=== PATIENT | female | born 1945 | race Caucasian/White ===

== ENCOUNTER 2023-09-06 20:04 | Observation (INO) | payer MEDICARE, SELFPAY ==
[2023-09-06] VITALS (9 sets, daily range): BP systolic 129–183; BP diastolic 57–133; PULSE 88–102; BMI 31.8; BMI 31.5
--- NOTE | 2023-09-06 15:56 | ED.GENMED ---
History of Present Illness
General
Chief Complaint: Dizziness
Source: patient
Exam Limitations: none
Time Seen by Provider: 09/06/23 15:41
Nursing documentation reviewed up to this point in time: agreed with
Travel History
Have you had any contact with someone who has COVID-19?: No
Do you have any symptoms of coronavirus? Fever > 100 degrees, chills, cough, shortness of breath, sore throat, loss of taste or smell, muscle aches, or headache?: No
History of Present Illness
History of Present Illness:
Patient states she woke today feeling dizzy. Dizziness lasted approx 5 minutes. States she tried to stand and felt that her legs would not hold her. States he fell over plastic bin next to bin. Denies hittingher head. Able to get self up. SHe
called 911 (lives alone). Now with complaint of headache, neck pain radiating down right side of body. Denies fever/chills, n/v/d. Reports episode of abdominal pain last week. No n/v/d. Denies any CP/pressure. Hx COPD, no increase in breathing
symptoms.
Past History
Past History
ED Past Medical History: COPD, GERD, HTN, Hypercholesterolemia and Other (recurrent episodes of 'TIAs')
ED Past Surgical History: None
Social History
Tobacco: Smoker
Alcohol: None
Personal: Single
Living: alone
Employment: Retired
Family History
Family History: Other (reviewed and noncontributory)
Review of Systems
Review of Systems
Allergies reviewed?: Yes
All Other Systems: ROS reviewed and negative except as documented in HPI and ROS
Constitutional: Reports no symptoms
EENT: Reports no symptoms
Respiratory: Reports no symptoms
Cardiac: Reports no symptoms
ABD/GI: Reports no symptoms
: Reports no symptoms
Musculoskeletal: Reports neck pain
Skin: Reports no symptoms
Neurological: Reports dizzy, headache and weakness
Psychiatric: Reports no symptoms
Phy Exam
General Physical Exam
General Presentation: moderate distress
General age: appears stated age
General Skin: warm and dry
General Habitus: normal
General Mental: alert
Cardiovascular Exam
Cardiovascular Exam: regular rate/rhythm and no edema
Pulmonary Exam
Pulmonary Exam: lungs clear and no respiratory distress
Gastrointestinal Exam
Gastrointestinal Exam: normal bowel sounds, non tender, soft, no organomegaly and no pulsatile mass
Neurological Exam
Neurological Exam: alert, oriented x3, CN II-XII intact, no motor deficits, no sensory deficits and speech normal
NIH Stroke Score
Level of Consciousness: 0 - Alert
LOC questions: 0-Answers both correctly
LOC Commands: 0-Performs both correctly
Best Gaze: 0-Normal
Visual Ayala: 0=Normal, no visual loss
Facial palsy: 0=Normal, symmetrical
Motor - Right Arm: 0=No drift 10 seconds
Motor - Left Arm: 0=No drift 10 seconds
Motor - Right Le-No drift 5 seconds
Motor - Left Le-No drift 5 seconds
Limb Ataxia: 0-Absent
Sensation: 0-Normal
Best Language: 0-No aphasia
Dysarthria: 0-Normal
Extinction and Inattention: 0-No abnormality
Total Score:: 0
Musculoskeletal Exam
Musculoskeletal Exam: full ROM and neuro vasc intact
Skin Exam
Skin Exam: normal color, warm/dry and no rash
Psychiatric Exam
Psychiatric Exam: normal mood/affect
Course
Orders/Labs/Results
Orders:
Orders
09/06/23 15:18
EKG [Electrocardiogram (*1)] Urgent
Reason for Study: Vertigo / Dizzy
09/06/23 15:19
EKG- Treatment ONCE
09/06/23 15:53
CT Head W/o Iv Contrast Urgent
Comment:
Reason For Exam: fall
Cervical Spine wo Contrast CT [CT Cervical Spine W/o Iv Contr] Urgent
Comment:
Reason For Exam: fall, pain
09/06/23 15:55
0.9% Sodium Chloride 500 ml [Nss] 500 ml IV BOLUS
Lorazepam [Ativan] 0.25 mg IV NOW STA
09/06/23 15:59
Orthostatic VS- Treatment ONCE
09/06/23 16:06
Complete Blood Count/With Diff Urgent
Comprehensive Metabolic Panel Urgent
Urinalysis Reflex To Culture Urgent
Date Specimen was Collected: 09/06/23
Time Specimen was Collected: 15:56
09/06/23 18:53
CR Chest - 2 Views Urgent
Comment:
Reason For Exam: SOB
09/06/23 19:02
COVID-19 Antigen Urgent
Source: Nasal Swab
09/06/23 19:53
Admit/Transfer Patient As Directed
Co-Sign Provider:
Level of Care: Observation services
Assign to:: Telemetry
Physician / Group: Yogi/Hospitalist
Diagnosis: Dizziness, ambulatory dysfunction
Reason for Telemetry: Arrhythmia
Date to Stop Telemetry: 09/09/23
Time to Stop Telemetry: 11:00
09/06/23 19:55
Code Status As Directed
Resuscitation Status: Full Code
09/06/23 19:57
Meclizine [Antivert] 25 mg PO NOW STA
09/06/23 20:47
Acetaminophen [Tylenol/Feverall] 650 mg RECTAL Q4HPRN PRN
Acetaminophen [Tylenol] 650 mg PO Q4HPRN PRN
Albuterol [ProAIR HFA INHALER] 2 puff INH R Q4 PRN
Meclizine [Antivert] 25 mg PO Q8HPRN PRN
09/06/23 20:47
Case Management Consult ONCE
Case Management Consult: Discharge Planning
Comment: stroke/tia
DIETARY CONSULT Routine
Reason for Consult: stroke/TIA
Activity As Directed
Activity Level: With Assistance
NIH Stroke Scale As Directed
Directions: Per protocol
Comment: every shift and with any change in condition or mental status
Neurological Checks As Directed
Frequency: q4h
Additional Instructions:: q4h x 24h upon admission to the floor, then qshift & with any change in condition
and mental status
Patient Education As Directed
Type: Stroke education packet
Comment: provide to patient and family
Pneumatic Compression Sleeves As Directed
Type: Knee high
Vital Signs As Directed
Frequency: Per unit guidelines
Ot Eval And Treat Routine
Pt Eval And Treat Routine
Activity Level: With Assistance
DX Deep Vein Thrombosis Video Routine
09/06/23 22:00
Budesonide/Formoterol 80/4.5 [Symbicort 80/4.5 Mcg Inhaler] 2 puff INH R BID
Loratadine [Claritin] 10 mg PO HS
Pantoprazole [Protonix] 40 mg PO HS
09/07/23 06:00
Cardiovascular Evaluation IN AM
09/07/23 08:00
Amlodipine [Norvasc] 10 mg PO DAILY
Aspirin Low Dose EC [Aspir Low (Enteric Coated)] 81 mg PO DAILY
Losartan [Cozaar] 100 mg PO DAILY
09/07/23 18:00
Enoxaparin Sodium [Lovenox] 40 mg SC QPM
09/09/23 11:00
DC Protocol for Telemetry ONCE
Abnormal Lab Results
09/06/23
16:06
Chloride 109 H mmol/L
(98-107)
Glucose 116 H mg/dl
(70-99)
09/06/23 16:06
09/06/23 16:06
Vital Signs
Initial and Last Documented VS:
Initial Vital Signs
Temp Pulse Resp BP Pulse Ox
97.7 F 106 17 177/65 93
09/06/23 15:16 09/06/23 15:16 09/06/23 15:16 09/06/23 15:16 09/06/23 15:16
Last Documented Vital Signs
Temp Pulse Resp BP Pulse Ox
98.1 F 76 16 148/65 96
09/06/23 21:11 09/06/23 22:05 09/06/23 22:05 09/06/23 21:11 09/06/23 22:08
*Radiology
Radiology exam reviewed: radiology read reviewed
*Pulse Oximetry
Patient hypoxic: no
*Critical Care Note
Total Time (30-74mins, 75-104mins- exclusive of procedures): Not Applicable
Update Note
Update Note:
Labs CT reviewed with patient. Still with dizziness with position change. She is unsteady when standing. Unable to safely transfer. Continues with complaint of weakness. Will admit to hospitalist.
ED Attending Note
-
Portions of this chart may have been created with voice recognition software.� Occasional wrong word or��sound alike� substitutions may have occurred due to the inherent limitations of voice recognition software.
Discharge Plan
Departure
Patient Disposition: Admit
Date of Disposition: 09/06/23
Time of Disposition: 17:41
Presentation/result/management discussed w/ accepting MD/DO: Hospitalist
Patient with high blood pressure during this ER visit?: No
Condition: Fair
Covid-19: Not Applicable
Discharge Problem:
Weakness, Dizziness
Interventions
Interventions:
*Risk Screen - Suicide Last Done: 09/06/23 15:25
*General Assessment Last Done: 09/06/23 15:16
*Neglect/Abuse Screening Last Done: 09/06/23 15:16
ED- Fall Risk Assessment Last Done: 09/06/23 15:25
*ED COVID-19 Vaccine History Last Done: 09/06/23 21:19
*Nursing Disposition Last Done: 09/06/23 20:51
ED- Neurological Assessment Last Done: 09/06/23 15:25
ED- Cardiac Assessment Last Done: 09/06/23 15:25
ED Swallowing Screen Last Done: 09/06/23 15:25
Discharge Date and Time
Discharge Date/Time: 09/06/23 20:51
[2023-09-06] MEDS: ATIVAN 0.25 MG IV (16:11)
[2023-09-06] MEDS: NSS 500 IV (16:12)
[2023-09-06 16:23] LABS: % Basophils 1.1 % (0-2); % Eosinophils 1.8 % (0-6); % Immature Granulocytes 0.3 % (0-0.5); % Lymphocytes 22.8 % (20.5-51.1); Absolute Basophils 0.1 10^3/uL (0-0.2); Absolute Eosinophils 0.2 10^3/uL (0-0.7); Absolute Monocytes 0.6 10^3/uL (0.1-0.6); Absolute Neutrophils 5.8 10^3/uL (1.4-6.5); Hematocrit 41.9 % (37.0-47.0); Mean Corp Hgb Conc. 35.8 g/dL (33.0-37.0); Mean Corpuscular Hgb 30.9 pg (27.0-31.0); Mean Corpuscular Volume 86.4 fL (81.0-99.0); Nucleated Red Blood Cells % 0 %; Platelet Count 305 10^3/uL (130-400); Red Blood Cell Count 4.85 10^6/uL (4.20-5.40); Red Cell Dist. Width 13.6 % (11.5-14.5); White Blood Cell Count 8.7 10^3/uL (4.8-10.8)
[2023-09-06 16:25] LABS: Urine Albumin Negative (Neg - Trace); Urine Bilirubin Negative (Negative); Urine Character Clear (Clear); Urine Color Straw; Urine Glucose Negative (Negative); Urine Ketone Negative (Negative); Urine Leukocyte Negative (Negative); Urine Nitrite Negative (Negative); Urine Occult Blood Negative (Negative); Urine Urobilinogen Negative (Neg - 1+)
[2023-09-06 16:36] LABS: ALT (SGPT) 31 U/L (0-35); AST (SGOT) 32 U/L (14-36); Albumin 4.4 g/dl (3.5-5.0); Alkaline Phosphatase 111 U/L (38-126); Blood Urea Nitrogen 14 mg/dl (7-17); Calcium 9.5 mg/dl (8.4-10.2); Carbon Dioxide 28 mmol/L (22-30); Chloride 109 mmol/L (98-107); Estimated Creatinine Clearance 72 ml/min; Glucose 116 mg/dl (70-99); Potassium 3.9 mmol/L (3.5-5.1); Sodium 139 mmol/L (135-145); Total Bilirubin 0.9 mg/dl (0.2-1.3); Total Protein 7.2 g/dl (6.3-8.2); eGFR > 60.00
--- NOTE | 2023-09-06 18:11 | HPS.HSE ---
Family Physician
-
Family Physician: Rip Chambers
Chief Complaint
-
dizziness
History of Present Illness
The patient is a 78 yo woman with PMH signficant for COPD, GERD, HTN, HLD, TIAs, presenting to the ED due to sensation that her legs will give out when trying to stand. She fell over plastic bin. No LOC, no hitting head, She lives alone and called
911. She has headache, neck pain, radiating to right side of body. She says she lives on 2nd floor and has had neck strain due to carrying her groceries up 2 flights. She's had vertigo several years ago, saw Neurology at that time, and was
responsive to PT and Meclizine. No fever, no chills, no n/v/d, Abdominal pain last week. No CP, no SOB.
Medical History
Past Medical History
Past Medical History: Reports COPD, GERD, HTN, Hypercholesterolemia and Other (recurrent TIAs, pre-diabetes)
Past Surgical History: Reports None
Social History
Tobacco: Smoker (1.5 packs per day (down from prior))
Alcohol: None
Personal: Single
Living: Alone
Family History
Family History: CAD and Other (stroke, diabetes)
Allergies / Home Medications
Allergies reflects when Allergies were last updated in [facility].
Home Medications with original date entered in [facility]
Allergy/Medication List:
Allergies
Allergy/AdvReac Type Severity Reaction Status Date / Time
garlic Allergy Nausea / Verified 03/20/21 14:20
Vomiting
onion Allergy Nausea / Verified 03/20/21 14:20
Vomiting
Penicillins AdvReac 'diarrhea' Verified 03/20/21 14:20
nausea/vomiting
Home Medications
loratadine 10 mg tablet (Claritin) 10 mg PO HS ##0 06/22/09
albuterol sulfate 90 mcg/actuation aerosol inhaler (Ventolin HFA) 2 puff inhalation R Q4 PRN sob/wheezing 12/07/17
omeprazole magnesium 20 mg tablet,delayed release (Prilosec OTC) 20 mg PO HS 12/07/17
amlodipine 10 mg tablet 10 mg PO DAILY 09/06/23
aspirin 81 mg tablet,delayed release 81 mg PO DAILY 09/06/23
fluticasone fur. 100 mcg-umeclid 62.5 mcg-vilant 25 mcg inhalat.powder (Trelegy Ellipta) 1 inh inhalation R HS 09/06/23
losartan 100 mg tablet 100 mg PO DAILY 09/06/23
Review of Systems
-
A 12 point ROS was completed and negative except as noted: Yes
Physical Exam
Vital Signs
Vital Signs
Temp Pulse Resp BP Pulse Ox
97.7 F 101 18 156/64 87
09/06/23 15:16 09/06/23 16:30 09/06/23 16:30 09/06/23 16:30 09/06/23 16:17
Physical Exam
General: Well Developed, Well Nourished, No Apparent Distress, Comfortable and Conversant
Respiratory: Clear
Cardiac: S1/S2 and Regular Rhythm
GI: Soft, Non Tender and Non Distended
Musculoskeletal: No Clubbing, No Cyanosis and No Edema
Skin: Warm and Dry
Neuro: AO x 3 and No Motor Deficits
Psych: Calm
Laboratory Results
-
09/06/23 16:06
09/06/23 16:06
Laboratory Results
Total Bilirubin 0.9 mg/dl (0.2-1.3) 09/06/23 16:06
AST 32 U/L (14-36) 09/06/23 16:06
ALT 31 U/L (0-35) 09/06/23 16:06
Alkaline Phosphatase 111 U/L (38-126) 09/06/23 16:06
Data Reviewed
-
CT Scan: Report Reviewed by me (CT head no acute pathology, CT C-spine DJD)
Medical Tests (Nuc Med, Echo, EKG etc): Image Personally Visualized and interpreted and Report Reviewed by me (EKG NSR)
Impression/Plan
-
IMPRESSION:
#Dizziness, possibly due to BPV in setting of past history of vertigo, less likely posterior circulation stroke
-Admit to tele for overnight monitoring
-Neurology consultation
-serial neuro-checks
-Meclizine prn
-consider PT for vertigo and MRI , pending clinical course
#Cervical DJD
#Tobacco smoking- 1.5 ppd
-does not want nicotine patch at this time
-Incidental findings- Partially visualized right upper lobe pulmonary nodules measuring up to 7 mm. Recommend outpatient workup with dedicated noncontrast CT chest. Will have to arrange on discharge and discuss with patient as well.
#Echo 02/26/23 Hyperdynamic LV systolic function EF 75%, mild
#COPD
#GERD
#HLD
#HTN
-continue home meds, prn labetalol IV
DVT proph-Lovenox
Full Code
[2023-09-06 19:27] LABS: COVID-19 Antigen Negative (Negative)
[2023-09-06] MEDS: ANTIVERT 25 MG PO (20:09)
[2023-09-06] MEDS: PROTONIX 40 MG PO (21:51)
[2023-09-06] MEDS: CLARITIN 10 MG PO (21:51)
[2023-09-06] MEDS: SPIRIVA RESPIMAT 2.5 MCG 2 PUFF INH (21:56)
[2023-09-06] MEDS: SYMBICORT 80/4.5 MCG INHALER 2 PUFF INH (21:56)
[2023-09-06] MEDS: MOTRIN 400 MG PO (21:58)
--- NOTE | 2023-09-06 22:01 | PTCARENOTE ---
pt arrived from ed. able to walk into room with RW. aaox3, tele placed, VS, see MAR and assessment for further details. call vergara within reach.
[2023-09-07] VITALS (10 sets, daily range): BP systolic 102–158; BP diastolic 55–68; PULSE 72–95; O2SAT 92–93
[2023-09-07] MEDS: COZAAR 100 MG PO (07:38)
[2023-09-07] MEDS: ASPIR LOW (ENTERIC COATED) 81 MG PO (07:39)
[2023-09-07] MEDS: NORVASC 10 MG PO (07:39)
[2023-09-07 07:54] LABS: HDL Cholesterol 46 mg/dl; LDL Cholesterol, Calculated 145 mg/dl; Total Cholesterol 208 mg/dl (50-199); Triglyceride 85 mg/dl (10-149); Very Low Density Lipoprotein 17 mg/dl (0-30)
[2023-09-07] MEDS: SYMBICORT 80/4.5 MCG INHALER 2 PUFF INH ×2 (08:06→21:00)
--- NOTE | 2023-09-07 08:52 | CON.NEURO4 ---
Addendum entered and electronically signed by Gary Dudley MD 09/07/23 15:17:
MRI brain negative, ruling out structural issue in posterior fossa or ischemic stroke.
Most likely a worsening of fpc vertigo issue.
Meclizine scheduled BID for 5-7 days, PT and vestibular therapy, follow BP's. Orthostatics not quite positive.
Would not start steroids.
Will follow peripherally
Original Note:
Consultation - Neurology 4
-
CONSULTING PHYSICIAN: Aliyah Dudley
REFERRING PHYSICIAN: Hospitalist
DICTATED BY: Aliyah Dudley
DATE/TIME OF REQUEST: 09/07/22
DATE/TIME OF CONSULTATION: 09/07/22
Reason for Consultation: Dizziness
History of Present Illness:
Patient is a right handed 78 year old woman with history of hypertension, tobacco use, chronic intermittent dizziness presenting to hospital because of worsening of dizziness and bilateral lower extremity weakness starting yesterday after waking
up. Patient reports she has been in her normal state of health, had a viral illness with malaise and URI symptoms and fever about 1 month ago. No recent head or neck trauma or changes in medications. Patient reports that she had sudden onset of
worsened dizziness that seems to have waxed and waned since starting yesterday morning, she got out of bed and had a fall to the ground noting bilateral lower extremity weakness but was able to recover and walk around the house. No vomiting,
diplopia, vision loss, dysarthria, notices right arm and leg pain but not weakness of paresthesia. Reports having had right temporal area headache for about 1-2 months with features of mild photophobia and nausea, improves with excedrin in the
past. Takes aspirin 81 mg daily.
Reports having had dizziness as an intermittent issue since her 30's. 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 Had some
rare intermittent tinnitus on the left ear and hearing loss on left ear. Reports that she had had worsening of the dizziness in the past and had been evaluated by 2 previous neurologists during hospitalizations for dizziness here. Meclizine has
improved things in the past. She reports she had adjustable bed installed for the dizziness.
Past Medical History: COPD, GERD, HTN, Hypercholesterolemia, prediabetes, chronic intermittent dizziness
Surgical History: None
Family History: Non-contributory
Social History: Retired, about 1-1.5 pack per day smoker, no alcohol, lives on her own
Allergies: Penicillins diarrhea/vomiting
Review of Symptoms:
Patient denies any fever, headache, chest pain, shortness of breath, GI or symptoms.
Physical Exam:
Well appearing elderly woman in no distress, no head or neck trauma, eyes clear, oropharynx clear, heart rate regular, breathing unlabored, abdomen soft non tender, no lower extremity edema
Neurologic Examination:
The patient is awake, alert and oriented x 3. She is able to follow commands and answer questions appropriately. There is no aphasia or dysarthria. On cranial nerve assessment, pupils are 3 mm bilateral, round and reactive to light and
accommodation. Visual solomon are full. No abnormal nystagmus noted. Extraocular movements are intact. Facial sensations are intact and bilaterally symmetrical, there is no facial asymmetry. Hearing is intact bilaterally to normal conversation
volume. Tongue palate and uvula are midline. Sternocleidomastoid strengths are full bilaterally. Motor strengths are 5/5 bilateral upper and lower extremities on medical research [place] scale. There is no drift or involuntary movement noted. Deep
tendon reflexes are 2+ bilateral upper and lower extremities and Babinski is absent bilaterally. Sensations of pain, touch, temperature and vibration are intact and bilaterally symmetrical. There was no extinction noted on double simultaneous
stimulation. Coordination is intact by finger to nose bilaterally. Gait is slow and careful, no wide base or ataxia.
Lab Results:
Neuro Imaging:
CT head and C spine without contrast
IMPRESSION:
1. No acute intracranial abnormality noted.
2. No acute fracture or subluxation of the cervical spine. Multilevel degenerative changes of the cervical spine.
3. Partially visualized right upper lobe pulmonary nodules measuring up to 7 mm. Recommend outpatient workup with dedicated noncontrast CT chest.
Previous brain MRA had findings suggestive of diffuse atherosclerosis without high grade stenosis in the brain
Impressions
1. Worsening of chronic dizziness since yesterday, subjective right arm leg sensory change more characterized by pain, new headaches with migrainous features for about 1 month. Has been seen my neurology a couple of times over the past few years
for similar issues. Doubtful any of these have been TIA's.
2. 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
3. Hypertension
4. Tobacco use
5. Previous MRA findings suggestive of intracranial atherosclerosis, no findings of acute or chronic stroke on any of her previous MRI studies.
Recommendations:
1. Check MRI brain without contrast. If is negative for stroke then no changes to home aspirin or BP medication regimen and would focus on symptomatic control of dizziness with meclizine, control of headaches and blood pressure, physical therapy.
2. Continue aspirin 81 mg daily
3. Check orthostatic vital signs
4. Start Meclizine 25 mg BID for 5-7 days
5. Give aspirin 325 mg and Tylenol 1000 mg once now for mild headache
6. PT/OT evaluations
7. Goal normotension
8. Would start Atorvastatin 40 mg daily given LDL level, MRA previously with findings of intracranial atherosclerosis
Discussed patient care with: Patient, hospitalist
[2023-09-07] MEDS: ASPIRIN 325 MG PO (10:51)
[2023-09-07] MEDS: TYLENOL 1000 MG PO (10:51)
--- NOTE | 2023-09-07 12:12 | W.PN.HOSP.TC ---
Today's Communication/Plan
-
PT
ASA
MRI Brain
Orthostatics
Assessment / Plan
Assessment / Plan
Physical Exam
General: Well Developed, Well Nourished, No Apparent Distress, Comfortable and Conversant
Respiratory: Clear
Cardiac: S1/S2 and Regular Rhythm
GI: Soft, Non Tender and Non Distended
Musculoskeletal: No Clubbing, No Cyanosis and No Edema
Skin: Warm and Dry
Neuro: AO x 3 and No Motor Deficits
Psych: Calm
IMPRESSION:
#Dizziness, possibly due to BPPV in setting of past history of vertigo, less likely posterior circulation stroke
-telemetry
-Neurology consultation
-serial neuro-checks
-MRI brain without contrast
-ASA 81mg daily
-Meclizine 25mg BID x 5-7 days prn
-Orthostatics
-Atorvastatin 40mg daily
-PT/OT
#Cervical DJD
#Tobacco smoking- 1.5 ppd
-does not want nicotine patch at this time
# Right upper lobe pulmonary nodules measuring up to 7 mm.
-Recommend outpatient workup with dedicated noncontrast CT chest.
-please let pulmonary know prior to dc for outpatient close f/u
#Echo 02/26/23 Hyperdynamic LV systolic function EF 75%, mild
#COPD
#GERD
#HLD
#HTN
-continue home meds, prn labetalol IV
DVT proph-Lovenox
Full Code
Anticipated Discharge: 24 - 48 hours
Subjective/Interval History
-
Date of Service: September 07, 2023
still dizzy from time to time
Objective Data
-
Vital Signs:
Vital Signs
Temp Pulse Resp BP Pulse Ox
97.8 F 75 18 123/55 97
09/07/23 11:00 02/04/24 11:00 09/07/23 11:00 09/07/23 11:00 09/07/23 11:02
I&O
09/06/23 09/07/23 09/08/23
06:59 06:59 06:59
Intake Total 480 / 480
Balance 480 / 480
Review of Systems
-
History Source: Patient
All other systems: Not reviewed unless documented
Data Reviewed
-
Diagnostic Radiology: Image personally visualized and interpreted and Report Reviewed by me
CT Scan: Image personally visualized and interpreted and Report Reviewed by me
Labs: Labs Reviewed by me
[2023-09-07] MEDS: ATIVAN 0.5 MG IV (12:36)
[2023-09-07] MEDS: NSS (PRESERVATIVE FREE) 0.25 ML IV (12:37)
--- NOTE | 2023-09-07 16:02 | STATUS ---
SITUATION:
BACKGROUND:
ASSESSMENT:
RECOMMENDATION:
--- NOTE | 2023-09-07 16:02 | CM ---
Chart reviewed. Spoke with pt at bedside
Pt lives alone in an apartment - 12 steps to enter
Has daughter nearby. Currently does own cooking, shopping, drives
Denies home DME
Denies past snf/HH
PCP - Dr Tressa Chambers
Pharm - [facility]
Will have ride at d/c
Discussed [facility] letter
PT recommending HH - no preference
Referred to [facility] for Home care needs
Plan - anticipate home with home services
[2023-09-07] MEDS: LOVENOX 40 MG SC (17:20)
[2023-09-07] MEDS: LIPITOR 40 MG PO (17:20)
[2023-09-07] MEDS: ANTIVERT 25 MG PO (20:06)
[2023-09-07] MEDS: SPIRIVA RESPIMAT 2.5 MCG 2 PUFF INH (21:00)
[2023-09-07] MEDS: CLARITIN 10 MG PO (21:45)
[2023-09-07] MEDS: PROTONIX 40 MG PO (21:46)
[2023-09-08 03:31] VITALS: BP 142/70
[2023-09-08 06:36] LABS: Hematocrit 38.4 % (37.0-47.0); Hemoglobin 13.1 g/dL (12.0-16.0); Mean Corp Hgb Conc. 34.1 g/dL (33.0-37.0); Mean Corpuscular Hgb 30.5 pg (27.0-31.0); Mean Corpuscular Volume 89.5 fL (81.0-99.0); Mean Platelet Volume 9.3 fL (7.4-10.4); Platelet Count 246 10^3/uL (130-400); Red Blood Cell Count 4.29 10^6/uL (4.20-5.40); Red Cell Dist. Width 13.2 % (11.5-14.5); White Blood Cell Count 7.9 10^3/uL (4.8-10.8)
[2023-09-08 06:54] LABS: ALT (SGPT) 27 U/L (0-35); AST (SGOT) 28 U/L (14-36); Albumin 3.4 g/dl (3.5-5.0); Alkaline Phosphatase 88 U/L (38-126); Blood Urea Nitrogen 17 mg/dl (7-17); Calcium 8.6 mg/dl (8.4-10.2); Carbon Dioxide 28 mmol/L (22-30); Chloride 108 mmol/L (98-107); Estimated Creatinine Clearance 53 ml/min; Glucose 85 mg/dl (70-99); Potassium 3.7 mmol/L (3.5-5.1); Sodium 138 mmol/L (135-145); Total Bilirubin 0.6 mg/dl (0.2-1.3); Total Protein 5.8 g/dl (6.3-8.2); eGFR > 60.00
[2023-09-08 07:00] VITALS: BP 117/54
[2023-09-08] MEDS: SYMBICORT 80/4.5 MCG INHALER 2 PUFF INH (07:41)
[2023-09-08] MEDS: ASPIR LOW (ENTERIC COATED) 81 MG PO (08:01)
[2023-09-08] MEDS: ANTIVERT 25 MG PO (08:02)
[2023-09-08] MEDS: NORVASC 10 MG PO (08:02)
[2023-09-08] MEDS: COZAAR 100 MG PO (08:02)
[2023-09-08 11:00] VITALS: BP 143/56
--- NOTE | 2023-09-08 11:37 | W.PN.HOSP.TC ---
Addendum entered and electronically signed by Christina Phillips MD 09/08/23 15:32:
Total DC time 35 minutes
Original Note:
Today's Communication/Plan
-
see A/P
Assessment / Plan
Assessment / Plan
A/P:
# Dizziness, likely due to BPPV in setting of history of vertigo, less likely posterior circulation stroke
MRI brain: No acute intracranial abnormality noted. Advanced chronic senescent changes.
Neuro on board, recc Meclizine scheduled BID for 5-7 days, PT and vestibular therapy
Orthostatic equivocal
PT OT recc HH
# Cervical DJD
# Tobacco smoking- 1.5 ppd
does not want nicotine patch at this time
# Right upper lobe pulmonary nodules measuring up to 7 mm, incidental finding on CT head
Recommend outpatient workup with dedicated noncontrast CT chest.
Pt and daughter informed of finding and recc
# Echo 02/26/23 Hyperdynamic LV systolic function EF 75%, mild
# COPD
# GERD
# HLD
# HTN
continue home meds, prn labetalol IV
DVT proph-Lovenox
Full Code
DW RN
DW daughter at bedside
Anticipated Discharge: Today
Subjective/Interval History
-
Date of Service: September 08, 2023
Objective Data
-
Labs:
Laboratory Results
09/08/23
06:12
WBC 7.9
Hgb 13.1
Hct 38.4
Plt Count 246
Sodium 138
Potassium 3.7
Chloride 108 H
Carbon Dioxide 28
BUN 17
Creatinine 0.8
Glucose 85
Calcium 8.6
Total Bilirubin 0.6
AST 28
ALT 27
Alkaline Phosphatase 88
Vital Signs:
Vital Signs
Temp Pulse Resp BP Pulse Ox
36.6 C 78 16 143/56 96
09/08/23 11:00 09/08/23 11:00 09/08/23 11:00 09/08/23 11:00 09/08/23 11:00
I&O
09/07/23 09/08/23 09/09/23
06:59 06:59 06:59
Intake Total 480 / 480 1020 / 1020
Balance 480 / 480 1020 / 1020
Review of Systems
-
History Source: Patient
All other systems: Not reviewed unless documented
Physical Exam
-
General: Well Developed, Well Nourished, No Apparent Distress, Comfortable and Conversant
HEENT: Normocephalic, Atraumatic, Nose Appears Normal and Ears Appear Normal
Respiratory: Clear to Auscultation and Non Labored Respirations; Negative Accessory Resp Muscle Use
Cardiac: Regular Rhythm and S1/S2
GI: Soft, Nontender, Nondistended and Normal Bowel Sounds
Skin: Warm and Dry
Neuro: Awake, Alert, Oriented, AO x 3 and Nonfocal/Grossly Intact
Psych: Calm and Intact Judgement/Insight
Data Reviewed
-
Labs: Labs Reviewed by me
--- NOTE | 2023-09-08 13:19 | CM ---
Spoke with RN who stated that per attending patient stable for discharge. Placed a call to [facility] and spoke with Junie Rivera who confirmed acceptance for patient.
Per previous CM on case, patient has a ride home however will remain available if that has changed.
Plan: Case management will continue to follow and assist with discharge planning. Patient to return home with VN through [facility].
--- NOTE | 2023-09-08 15:26 | W.DCSUMMARY ---
Discharge Summary
Discharge Data
Date of Admission: 09/06/23
Date of Discharge: 09/08/23
-
Pending Results: No
Hospital Course
Principal Diagnosis:
Dizziness/vertigo likely Benign paroxysmal positional vertigo (BPPV)
Incidental finding of Right upper lobe pulmonary nodules measuring up to 7 mm
Chronic Diagnoses:�
Cervical degenerative joint disease
Tobacco smoking- 1.5 pack per day
Chronic obstructive pulmonary disease
Gastroesophageal reflux disease
Hyperlipidemia
Hypertension
Consultations:�
Neurology
Procedures:�
None
Clinical course:�
This is a 78-year-old female, with past medical history as stated above, who presented with dizziness.
Problem 1:
Dizziness, likely due to BPPV.
Her MRI brain was negative hence less likely due to posterior circulation stroke.
She can continue with Meclizine 25 mg twice daily for 5-7 days, and follow-up with physical therapy outpatient for vestibular therapy.
She has also been informed to try Hailey maneuver outpatient for her BPPV.
As for the rest of her medical problems, they were stable during her hospital stay.
Discharge Plan
-
Patient Disposition: Home with Home Care
Discharge Diagnosis/Procedures: Dizziness likely vertigo/ due to Benign paroxysmal positional vertigo; Right upper lobe pulmonary nodules measuring up to 7 mm (incidental finding on CT head); high cholesterol (LDL at 145)
Condition: Fair
Diet: As tolerated
Activity: As tolerated
Driving Restrictions: Not until seen by your Dr
Others Tests: outpatient non-contrast CT chest to evaluate lung nodule
Activity Restrictions/Additional Instructions:
Continue Meclizine 25 mg twice daily for 5-7 days.
Follow up with PT outpatient for vestibular therapy.
You can try Hailey maneuver for BPPV.
Follow up with your PCP or welfare adviser for the incidental right lung nodule noted on CT head.
You were started with Lipitor 40 mg for high cholesterol (LDL level at 145)
Referrals:
Rip Chambers, DO [Family Provider] - in less than 1 week
Prescriptions:
New
meclizine 25 mg Tablet
25 mg PO BID 7 Days Qty: 14 0RF
atorvastatin 40 mg Tablet
40 mg PO QPM Qty: 30 0RF
Continued
loratadine [Claritin] 10 mg Tablet
10 mg PO HS Qty: 0
albuterol sulfate [Ventolin HFA] 90 MCG/PUFF HFA aerosol inhaler
2 puff inhalation R Q4 PRN (Reason: sob/wheezing)
omeprazole magnesium [Prilosec OTC] 20 MG tablet,delayed release (DR/EC)
20 mg PO HS
aspirin 81 mg Tablet,Delayed Release (Dr/Ec)
81 mg PO DAILY
amlodipine 10 mg tablet
10 mg PO DAILY
losartan 100 mg tablet
100 mg PO DAILY
Trelegy Ellipta 100-62.5-25 mcg blister with device
1 inh INHALATION R HS
ibuprofen 400 mg Tablet
400 mg PO Q6H PRN (Reason: CHENG/pain)
Discharge Orders:
Discharge Patient (As Directed); Ordered 09/08/23
Ordered By: Christina Phillips
Discharge Date and Time
Discharge Date/Time: 09/08/23 13:19
--- NOTE | 2023-09-22 09:00 | OID.L.PAT ---
Pulmonary Nodule Pat Letter
- -
09/22/23
SHAWN LY
[address]
[place], [place]
Deafiona ESCOBAR,
A pulmonary nodule was seen on an imaging study done by [facility]. This was reviewed by the [facility] Pulmonary Nodule Advisory Board and the following recommendation was made:
Recommendation: Follow up with a Insulation Worker Furnace Installer
If you have any questions, please do not hesitate to contact your primary care physician. If you are in need of a Physician, you can go to [email or web address] and click on 'Find a Provider'. Type 'Family Medicine' in the search.
Oncology Nurse Navigator
[facility]
[phone]
--- NOTE | 2023-09-22 09:01 | OID.L.REC ---
Pulmonary Nodule Follow Up
- Recommendation
09/22/23
Pulmonary Nodule Review Recommendations
Your patient, SHAWN LY, had a pulmonary nodule seen on a CT Head done on 09/06/23 in the [facility] Emergency Room.
This was reviewed by the [facility] Pulmonary Nodule Advisory Board and the following recommendation was made:
Recommendation: Follow up with a Home And Family Living Professor
If you have any questions please do not hesitate to contact us.
Sincerely,
Oncology Nurse Navigator
[facility]
[phone]
== END 2023-09-08 13:19 | disposition home health service (06) ==
LOC: 3 WEST ACU 20:04
PROVIDERS: Internal Medicine; Nurse Practitioner; ADMITTING PHYSICIAN Internal Medicine; ATTENDING PHYSICIAN Internal Medicine; CONSULT PHYSICIAN Student in an Organized Health Care Education/Training Program; EMERGENCY PHYSICIAN Emergency Medicine; FAMILY PHYSICIAN Family Medicine
DX: R42 Dizziness and giddiness (principal); R51.9 Headache, unspecified; R91.8 Other nonspecific abnormal finding of lung field; M54.2 Cervicalgia; W18.39XA Other fall on same level, initial encounter; Y93.89 Activity, other specified; R53.1 Weakness; Y92.009 Unspecified place in unspecified non-institutional (private) residence as the place of occurrence of the external cause; J44.9 Chronic obstructive pulmonary disease, unspecified; R73.03 Prediabetes; K21.9 Gastro-esophageal reflux disease without esophagitis; I10 Essential (primary) hypertension; E78.00 Pure hypercholesterolemia, unspecified; M47.812 Spondylosis without myelopathy or radiculopathy, cervical region; F17.210 Nicotine dependence, cigarettes, uncomplicated; Z86.73 Personal history of transient ischemic attack (TIA), and cerebral infarction without residual deficits; Z11.52 Encounter for screening for COVID-19; Z60.2 Problems related to living alone; Z83.3 Family history of diabetes mellitus; Z82.49 Family history of ischemic heart disease and other diseases of the circulatory system; Z82.3 Family history of stroke; Z88.0 Allergy status to penicillin; Z91.018 Allergy to other foods; Z79.82 Long term (current) use of aspirin
CPT/HCPCS: 70450; 70551; 71046; 72125; 80053; 80061; 81003; 85025; 85027; 87811; 93005; 94640; 96361; 96374; 97162; 97165; 99285; G0378

== ENCOUNTER → 2023-09-15 15:34 | Outpatient (REF) | payer MEDICARE, SELFPAY | LOC: HWRAD 15:34 | PROVIDERS: ATTENDING PHYSICIAN Family Medicine | DX: R91.8 Other nonspecific abnormal finding of lung field (principal); Z09 Encounter for follow-up examination after completed treatment for conditions other than malignant neoplasm; R42 Dizziness and giddiness | CPT/HCPCS: 71250 ==

== ENCOUNTER → 2024-02-26 14:57 | Outpatient (REF) | payer MEDICARE, SELFPAY | LOC: RCS 14:57 | PROVIDERS: ATTENDING PHYSICIAN Nurse Practitioner; FAMILY PHYSICIAN Family Medicine | DX: I10 Essential (primary) hypertension (principal); E78.00 Pure hypercholesterolemia, unspecified; I35.0 Nonrheumatic aortic (valve) stenosis | CPT/HCPCS: 93306 ==

== ENCOUNTER 2024-11-15 15:02 | Inpatient (IN) | payer MEDICARE, SELFPAY ==
[2024-11-15] VITALS (10 sets, daily range): BP systolic 97–146; BP diastolic 47–120; BMI 33.2; BMI 31.8
--- NOTE | 2024-11-15 10:31 | ED.GENMED ---
History of Present Illness
General
Chief Complaint: Breathing Problem
Source: patient and ambulance crew (Report patient was hypoxic, with a fever and cough since last Friday.)
Exam Limitations: none
Time Seen by Provider: 11/15/24 10:17
Nursing documentation reviewed up to this point in time: agreed with
History of Present Illness
History of Present Illness:
79-year-old female presents emergency room complaining of feeling weak, coughing, shortness of breath and fever.
Past History
Past History
ED Past Medical History: COPD, GERD, HTN, Hypercholesterolemia and Other (recurrent episodes of 'TIAs')
ED Past Surgical History: None
Social History
Tobacco: Smoker
Alcohol: None
Drug: None
Personal: Single
Living: alone
Employment: Retired
Family History
Family History: Other (reviewed and noncontributory)
Review of Systems
Review of Systems
Allergies reviewed?: Yes
All Other Systems: Not applicable
Constitutional: Reports fever
EENT: Reports no symptoms
Respiratory: Reports cough and trouble breathing
Cardiac: Reports no symptoms
ABD/GI: Reports no symptoms
: Reports no symptoms
Musculoskeletal: Reports no symptoms
Skin: Reports no symptoms
Neurological: Reports weakness
Endocrine: Reports no symptoms
Hematologic/Lymphatic: Reports no symptoms
Psychiatric: Reports no symptoms
Phy Exam
Physical Exam
Physical Exam:
Physical Exam
General: Fever 101.9
Neck: supple. no meningeal signs. normal posterior pharynx
Heart: s1/s2 tachycardia, no murmur. equal radial
pulses.
HEENT: Pupils equal round reactive to light, EOMI
Lungs: Moderate respiratory distress. Wheezing bilaterally
Abdomen: normal bowel sounds. not tender. no CVAT
Neuro: alert and oriented. no focal neurological deficits cranial nerves II through XII intact
Skin: no rash
Psychiatric: well kept. interactive and cooperative
Extremities: no edema. no calf tenderness. negative homans. good distal pulses
Scores
Heart Failure Risk
Heart Failure Risk Score: Not Applicable
Sepsis
Sepsis Screening
Sepsis Assessment: Sepsis Ruled Out
Sepsis Screen
Sepsis Screen: Sepsis Ruled Out
Date: 11/15/24
Time: 14:41
Course
Orders/Labs/Results
Orders:
Orders
11/15/24 10:29
Cardiac Monitoring- Treatment ONCE
IV Insert/Care/Rem.- Treatment PRN
CR Chest - 2 Views Urgent
Comment:
Reason For Exam: short of breath, fever
Pulse Ox/cont/shift [RESP] Stat
Quantity: 1
11/15/24 10:47
COVID-19 Antigen Urgent
Source: Nasal Swab
Complete Blood Count/With Diff Urgent
Comprehensive Metabolic Panel Urgent
Lactic Acid Q4H
Comment: CANCEL 2nd LACTIC ACID IF 1st LACTIC ACID IS LESS THAN 2
Blood Culture Q30M
FELIPE Source: Blood/Venous
Specimen Description:
Blood Culture Q30M
FELIPE Source: Blood/Venous
Specimen Description:
Influenza A+B Rapid Molecular Urgent
FELIPE Source: Nasal Swab
Specimen Description:
11/15/24 12:15
Ipratropium/Albuterol Sulfate [Duoneb] 3 ml INH R NOW STA
11/15/24 12:44
Acetaminophen [Tylenol] 650 mg PO NOW STA
11/15/24 13:15
Azithromycin 500 mg/250 ml [Zithromax Infusion] 500 mg in 250 ml IV NOW
CefTRIAXone [Rocephin] 2,000 mg IV NOW STA
11/15/24 13:22
Sterile Water [Sterile Water For Injection] 20 ml .ROUTE .STK-MED
11/15/24 13:42
Admit/Transfer Patient As Directed
Co-Sign Provider:
Level of Care: Inpatient admission
Assign to:: Medical/Surgical
Physician / Group: [email or web address]
Diagnosis: Sepsis ( T 101.9, HR > 90 ) due to PNA Suspect COPD flare
Reason for Hospitalization: Sepsis ( T 101.9, HR > 90 ) due to PNA
Suspect COPD flare with acute bronchospasm
Expected length of stay greater than two midnights?: Yes
ELOS- Estimated Length of Stay in days: 3
I certify the patient meets the requirements for IP care: Yes
11/15/24 13:44
Code Status As Directed
Resuscitation Status: Full Code
Procalcitonin Routine
PCT Algorithmm Indication: Respiratory
Abnormal Lab Results
11/15/24
10:47
Absolute Monos (auto) 0.7 H 10^3/uL
(0.1-0.6)
Lymphocytes % 18.7 L %
(20.5-51.1)
Glucose 133 H mg/dl
(70-99)
11/15/24 10:47
11/15/24 10:47
Vital Signs
Initial and Last Documented VS:
Initial Vital Signs
Temp Pulse Resp BP Pulse Ox
101.9 F H 103 16 135/65 86
11/15/24 10:09 11/15/24 10:09 11/15/24 10:09 11/15/24 10:09 11/15/24 10:09
Last Documented Vital Signs
Temp Pulse Resp BP Pulse Ox
101.9 F H 97 21 136/54 93
11/15/24 10:09 11/15/24 11:15 11/15/24 11:15 11/15/24 11:00 11/15/24 11:15
MDM/Problems Addressed
Differential Diagnosis Includes:
Pneumonia, COPD exacerbation
MDM/Problems Addressed:
79-year-old female with pneumonia. COPD. Admit to hospitalist. Hypoxia.
Chronic conditions affecting care: COPD
Acute Exacerbation and/or Progression of Chronic Illness: COPD
*Radiology
Radiology exam reviewed: preliminary read by ED provider (Chest x-ray shows left-sided pneumonia)
*Pulse Oximetry
Patient hypoxic: yes
*Critical Care Note
Total Time (30-74mins, 75-104mins- exclusive of procedures): Not Applicable
Data Reviewed
Further Testing Considered But Not Given:
CT chest not indicated
Patient Management
Social determinants of health affecting care: Living situation and Strong social support
Discussion with other providers: Hospitalist
Escalation/DeEscalation of care consider admission/obs:
Admit indicated
ED Attending Note
-
Portions of this chart may have been created with voice recognition software.� Occasional wrong word or��sound alike� substitutions may have occurred due to the inherent limitations of voice recognition software.
Discharge Plan
Departure
Patient Disposition: Admit
Date of Disposition: 11/15/24
Time of Disposition: 13:12
Admit to: Telemetry
Presentation/result/management discussed w/ accepting MD/DO: Hospitalist
Patient with high blood pressure during this ER visit?: Yes
Condition: Fair
Discharge Problem:
Pneumonia involving left lung, Acute exacerbation of chronic obstructive pulmonary disease
Prescriptions:
No Action
albuterol sulfate [Ventolin HFA] 90 MCG/PUFF HFA aerosol inhaler
2 puff inhalation R Q4HPRN PRN (Reason: sob/wheezing)
omeprazole magnesium [Prilosec OTC] 20 MG tablet,delayed release (DR/EC)
20 mg PO HS
aspirin 81 mg Tablet,Delayed Release (Dr/Ec)
81 mg PO DAILY
amlodipine 10 mg tablet
10 mg PO DAILY
losartan 100 mg tablet
100 mg PO DAILY
Trelegy Ellipta 100-62.5-25 mcg blister with device
1 inh INHALATION R HS
ibuprofen 400 mg Tablet
400 mg PO Q6HPRN PRN (Reason: BACK PAINS)
Referrals:
Rip Chambers, DO [Family Provider] -
Interventions
Interventions:
*Risk Screen - Suicide Last Done: 11/15/24 10:09
*General Assessment Last Done: 11/15/24 11:23
*Neglect/Abuse Screening Last Done: 11/15/24 10:09
*ED- Fall Risk Assessment Last Done: 11/15/24 11:23
*ED COVID-19 Vaccine History Last Done: 11/15/24 11:23
ED- Cardiac Assessment Last Done: 11/15/24 11:23
ED- Pulmonary Assessment Last Done: 11/15/24 11:23
Discharge Date and Time
Print Language: TRISTANIAN
[2024-11-15 11:13] LABS: % Basophils 0.7 % (0-2); % Eosinophils 0.1 % (0-6); % Immature Granulocytes 0.4 % (0-0.5); % Lymphocytes 18.7 % (20.5-51.1); % Monocytes 8.9 % (1.7-9.3); % Neutrophils 71.2 % (42.2-75.2); Absolute Basophils 0.1 10^3/uL (0-0.2); Absolute Lymphocytes 1.4 10^3/uL (1.2-3.4); Absolute Monocytes 0.7 10^3/uL (0.1-0.6); Absolute Neutrophils 5.3 10^3/uL (1.4-6.5); Hematocrit 39.8 % (37.0-47.0); Hemoglobin 13.8 g/dL (12.0-16.0); Mean Corp Hgb Conc. 34.7 g/dL (33.0-37.0); Mean Corpuscular Hgb 30.7 pg (27.0-31.0); Mean Corpuscular Volume 88.6 fL (81.0-99.0); Mean Platelet Volume 8.9 fL (7.4-10.4); Nucleated Red Blood Cells % 0 %; Platelet Count 215 10^3/uL (130-400); Red Blood Cell Count 4.49 10^6/uL (4.20-5.40); Red Cell Dist. Width 13.5 % (11.5-14.5); White Blood Cell Count 7.4 10^3/uL (4.8-10.8)
[2024-11-15 11:21] LABS: ALT (SGPT) 31 U/L (0-35); AST (SGOT) 31 U/L (14-36); Albumin 4.3 g/dl (3.5-5.0); Alkaline Phosphatase 107 U/L (38-126); Blood Urea Nitrogen 15 mg/dl (7-17); Calcium 8.8 mg/dl (8.4-10.2); Carbon Dioxide 25 mmol/L (22-30); Chloride 106 mmol/L (98-107); Glucose 133 mg/dl (70-99); Potassium 3.8 mmol/L (3.5-5.1); Sodium 140 mmol/L (135-145); Total Bilirubin 0.7 mg/dl (0.2-1.3); Total Protein 7.1 g/dl (6.3-8.2); eGFR > 60.00
[2024-11-15 11:28] LABS: COVID-19 Antigen Negative (Negative)
[2024-11-15] MEDS: DUONEB 3 ML INH ×2 (13:27→19:36)
[2024-11-15] MEDS: ROCEPHIN 2000 MG IV (13:28)
[2024-11-15] MEDS: TYLENOL 650 MG PO (13:28)
--- NOTE | 2024-11-15 13:36 | HPS.HSE ---
Family Physician
-
Family Physician: Rip Chambers
Chief Complaint
-
coughing, shortness of breath
History of Present Illness
HPI
79F HX COPD, GERD, HTN, Hypercholesterolemia, multiple suspected TIAs episodes pw
feeling weak, coughing, shortness of breath and fever.
Medical History
Past Medical History
Past Medical History: Reports COPD, GERD, HTN, Hypercholesterolemia and Other (recurrent TIAs, pre-diabetes)
Past Surgical History: Reports None
Social History
Tobacco: Smoker (1.5 packs per day (down from prior))
Alcohol: None
Personal: Single
Living: Alone
Family History
Family History: CAD and Other (stroke, diabetes)
Allergies / Home Medications
Allergies reflects when Allergies were last updated in [employer].
Home Medications with original date entered in [employer]
Allergy/Medication List:
Allergies
Allergy/AdvReac Type Severity Reaction Status Date / Time
garlic Allergy Nausea / Verified 03/20/21 14:20
Vomiting
onion Allergy Nausea / Verified 03/20/21 14:20
Vomiting
Penicillins AdvReac 'diarrhea' Verified 03/20/21 14:20
nausea/vomiting
Home Medications
loratadine 10 mg tablet (Claritin) 10 mg PO HS ##0 06/22/09
albuterol sulfate 90 mcg/actuation aerosol inhaler (Ventolin HFA) 2 puff inhalation R Q4 PRN sob/wheezing 12/07/17
omeprazole magnesium 20 mg tablet,delayed release (Prilosec OTC) 20 mg PO HS 12/07/17
amlodipine 10 mg tablet 10 mg PO DAILY 09/06/23
aspirin 81 mg tablet,delayed release 81 mg PO DAILY 09/06/23
fluticasone fur. 100 mcg-umeclid 62.5 mcg-vilant 25 mcg inhalat.powder (Trelegy Ellipta) 1 inh inhalation R HS 09/06/23
losartan 100 mg tablet 100 mg PO DAILY 09/06/23
Review of Systems
-
Constitutional: Reports Fever and Fatigue
EENT: Reports No Symptoms
Respiratory: Reports Cough and Trouble Breathing
Cardiac: Reports No Symptoms
Abdomen/GI: Reports No Symptoms
: Reports No Symptoms
Musculoskeletal: Reports No Symptoms
Skin: Reports No Symptoms
Neurological: Reports No Symptoms
Endocrine: Reports No Symptoms
Hematologic/Lymphatic: Reports No Symptoms
Psych: Reports No Symptoms
Physical Exam
Vital Signs
Vital Signs
Temp Pulse Resp BP Pulse Ox
101.9 F H 97 21 136/54 93
11/15/24 10:09 11/15/24 11:15 11/15/24 11:15 11/15/24 11:00 11/15/24 11:15
Physical Exam
General: Comfortable, Conversant, Respiratory Distress (moderate ) and Other (smell of tobaco)
HEENT: Anicteric
Respiratory: Wheezes; No Rales, Rhonchi or Crackles
Cardiac: S1/S2 and Regular Rhythm
Breast: Deferred by me
GI: Soft, Non Tender, Non Distended and Normal Bowel Sounds
Rectal: Deferred by Provider
Genito-urinary: Deferred by me
Musculoskeletal: No Edema
Neuro: AO x 3
Psych: Calm
Laboratory Results
-
11/15/24 10:47
11/15/24 10:47
Laboratory Results
Lactic Acid Cancelled 11/15/24 14:30
Total Bilirubin 0.7 mg/dl (0.2-1.3) 11/15/24 10:47
AST 31 U/L (14-36) 11/15/24 10:47
ALT 31 U/L (0-35) 11/15/24 10:47
Alkaline Phosphatase 107 U/L (38-126) 11/15/24 10:47
Data Reviewed
-
Diagnostic Radiology: Image Personally Visualized and interpreted
Medical Tests (Nuc Med, Echo, EKG etc): Report Reviewed by me
Lab Data: Labs Reviewed by me
Old Records: Reviewed
Impression/Plan
-
Vital Signs
Temp Pulse Resp BP Pulse Ox
101.9 F H 97 21 136/54 93
11/15/24 10:09 11/15/24 11:15 11/15/24 11:15 11/15/24 11:00 11/15/24 11:15
11/15/24
10:47
WBC 7.4
Creatinine 0.8
eGFR > 60.00
Lactic Acid 1.0
SARS-CoV-2 Antigen Negative
NEG Covid
NEG Flu A & B
BCx time two sent
My read on CXR: ? LLL PNA . Pending final report
02/26/23 TTE:
Hyperdynamic LV systolic function
EF 75%,
mild
Last hospitalist admission:
Date of Admission: 09/06/23 - Date of Discharge: 09/08/23
Principal Diagnosis:
Dizziness/vertigo likely Benign paroxysmal positional vertigo (BPPV)
Incidental finding of Right upper lobe pulmonary nodules measuring up to 7 mm
ASSESSMENT & PLAN
Sepsis ( T 101.9, HR > 90 ) due to PNA
Suspect PNA at [facility] with associated fever 101.9 but no WCC
Suspect element of COPD flare with acute bronchospasm
Associated acute Hypoxic RI with POx low 90s on RA
HX COPD
Curent smoker
nl LA
- NEG Flu A& B
- NEG Covid
- check PCT
- f/u BCx sent from ER
- IV NS
- agree with IV CFTX and Azithromycin
- supportive O2 Rx to keep POx > 93
- IV Decadron
- DuoNebs qid and PRN
- Tylenol PRN
- advise cessation of smoking
HX Right upper lobe pulmonary nodules measuring up to 7 mm, incidental finding on CT head from last admission
- Recommend outpatient workup with dedicated noncontrast CT chest.
- Record of Pt and daughter informed of finding on last admission
HLD
- No statin on current Rx list
Benign HTN
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
Nicotine use disorder
Current smoker
- advise cessation of smoking
- Nicotine HYDROCRANE OPERATOR
DVT Px: LMWH
Full code
IP
[2024-11-15] MEDS: ZITHROMAX INFUSION 250 IV (13:48)
[2024-11-15 14:27] LABS: Procalcitonin < 0.05 ng/ml (0.0-0.25)
[2024-11-15] MEDS: SYMBICORT 80/4.5 MCG INHALER 2 PUFF INH (19:37)
[2024-11-15] MEDS: DECADRON 4 MG IV (20:03)
[2024-11-15] MEDS: LOVENOX 40 MG SC (20:03)
[2024-11-15] MEDS: NSS 1000 IV (20:05)
[2024-11-15] MEDS: PROTONIX 40 MG PO (21:55)
[2024-11-16 07:20] VITALS: BP 128/53
[2024-11-16] MEDS: SPIRIVA RESPIMAT 2.5 MCG 2 PUFF INH (07:27)
[2024-11-16] MEDS: DUONEB 3 ML INH ×4 (07:27→19:25)
[2024-11-16] MEDS: SYMBICORT 80/4.5 MCG INHALER 2 PUFF INH ×2 (07:45→19:25)
[2024-11-16 08:06] LABS: Hematocrit 35.9 % (37.0-47.0); Hemoglobin 12.4 g/dL (12.0-16.0); Mean Corp Hgb Conc. 34.5 g/dL (33.0-37.0); Mean Corpuscular Hgb 30.8 pg (27.0-31.0); Mean Corpuscular Volume 89.1 fL (81.0-99.0); Mean Platelet Volume 9.5 fL (7.4-10.4); Platelet Count 193 10^3/uL (130-400); Red Blood Cell Count 4.03 10^6/uL (4.20-5.40); Red Cell Dist. Width 13.2 % (11.5-14.5); White Blood Cell Count 4.9 10^3/uL (4.8-10.8)
[2024-11-16] MEDS: COZAAR 100 MG PO (09:22)
[2024-11-16] MEDS: DECADRON 4 MG IV ×2 (09:22→22:00)
[2024-11-16] MEDS: ASPIR LOW (ENTERIC COATED) 81 MG PO (09:22)
[2024-11-16] MEDS: ZITHROMAX 500 MG PO (09:22)
--- NOTE | 2024-11-16 11:02 | W.PN.HOSP.TC ---
Today's Communication/Plan
-
Continue antibiotics and steroids
Wean oxygen as tolerated
Assessment / Plan
Assessment / Plan
79-year-old with shortness of breath and cough
Chest x-ray reviewed by me-bibasilar opacities left greater than right
Echo 02/26/2024-hyperdynamic LV EF 75% mild to moderate
CVS: S1-S2 normal, systolic murmur at apex
Chest: Bilateral showed wheezes
Abdomen: Soft, NT / Bowel sounds present
Extremities: No edema
CUSTOMER PRICING MANAGER: Non focal exam
# Sepsis due to left lower lobe pneumonia
COPD exacerbation and acute bronchitis
Acute hypoxic respiratory insufficiency secondary to above
Influenza and COVID-negative
Blood culture sent from ER
Continue ceftriaxone and Zithromax
On Trelegy Ellipta as outpatient
Nebulizer treatments
Decadron
Smoking cessation counseling done however patient states that every time she quits or tries to quit she ends up smoking even more
# Right upper lobe pulmonary nodule-needs outpatient follow-up
# Hypertension-continue amlodipine, losartan
# GERD-continue PPI
# Mild to moderate aortic stenosis
# Sleep apnea- ? CPAP
# Obesity with a BMI of 31
# Diverticulosis/hemorrhoids
# Fatty liver
# Cervical degenerative disc disease
# Active smoker-cessation counseling-continue nicotine patch
# DVT prophylaxis-Lovenox
# Full code
D/W Rn
Anticipated Discharge: 24 - 48 hours
Subjective/Interval History
-
Date of Service: November 16, 2024
Objective Data
-
Labs:
Laboratory Results
11/16/24
07:28
WBC 4.9
Hgb 12.4
Hct 35.9 L
Plt Count 193
Vital Signs:
Vital Signs
Temp Pulse Resp BP Pulse Ox
98.0 F 78 16 128/53 93
11/16/24 07:20 11/16/24 07:47 11/16/24 07:47 11/16/24 07:20 11/16/24 08:10
I&O
11/15/24 11/16/24 11/17/24
06:59 06:59 06:59
Intake Total 240 / 240
Balance 240 / 240
[2024-11-16] MEDS: NSS IV (12:04)
[2024-11-16] MEDS: ROCEPHIN 1000 MG IV (13:16)
[2024-11-16] MEDS: STERILE WATER FOR INJECTION 10 ML IV (13:16)
[2024-11-16 15:25] VITALS: BP 147/65
--- NOTE | 2024-11-16 15:41 | CM ---
Met with patient to obtain information for assessment. Patient stated that she lives in a one floor condo with a flight of steps to enter. She denied any difficulty with steps. Patient described herself as independent with her ADLs, personal care,
dressing and bathing. 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 Her daughter lives close as well as her adult grandson and are supportive if she has any needs. Patient has no DME.
She has not had VN services She has not been to a SNF.
She has a prescription plan and uses, [facility] [address]
Her PCP is, Rip Chambers.
Patient stated that she feels she will be able to return home when stable. She is hoping to wean off of her o2.
Plan: Case management will continue to follow and assist with discharge planning. Will watch for o2 needs.
[2024-11-16] MEDS: LOVENOX 40 MG SC (17:51)
[2024-11-16] MEDS: PROTONIX 40 MG PO (22:00)
[2024-11-16] MEDS: TYLENOL 325 MG PO (22:40)
[2024-11-16] MEDS: ROBITUSSIN 100 MG PO (22:41)
[2024-11-16 23:38] VITALS: BP 141/62
[2024-11-17 07:29] LABS: Blood Urea Nitrogen 18 mg/dl (7-17); Calcium 9.1 mg/dl (8.4-10.2); Carbon Dioxide 22 mmol/L (22-30); Chloride 112 mmol/L (98-107); Estimated Creatinine Clearance 70 ml/min; Glucose 133 mg/dl (70-99); Magnesium 2.2 mg/dl (1.6-2.3); Potassium 4.7 mmol/L (3.5-5.1); Sodium 139 mmol/L (135-145); eGFR > 60.00
[2024-11-17] MEDS: DUONEB 3 ML INH ×4 (07:42→19:17)
[2024-11-17] MEDS: SPIRIVA RESPIMAT 2.5 MCG 2 PUFF INH (07:43)
[2024-11-17] MEDS: SYMBICORT 80/4.5 MCG INHALER 2 PUFF INH ×2 (07:43→19:17)
[2024-11-17 08:22] VITALS: BP 125/58
[2024-11-17] MEDS: DECADRON 4 MG IV (08:30)
[2024-11-17] MEDS: ZITHROMAX 500 MG PO (08:30)
[2024-11-17] MEDS: ASPIR LOW (ENTERIC COATED) 81 MG PO (08:30)
[2024-11-17] MEDS: COZAAR 100 MG PO (08:30)
[2024-11-17 10:53] VITALS: BP 150/65; PULSE 86; O2SAT 93
[2024-11-17] MEDS: STERILE WATER FOR INJECTION 10 ML IV (13:17)
[2024-11-17] MEDS: ROCEPHIN 1000 MG IV (13:18)
--- NOTE | 2024-11-17 13:54 | W.PN.HOSP.TC ---
Today's Communication/Plan
-
Taper steroids
Continue antibiotics
Assessment / Plan
Assessment / Plan
79-year-old with shortness of breath and cough
Chest x-ray reviewed by me-bibasilar opacities left greater than right
Echo 02/26/2024-hyperdynamic LV EF 75% mild to moderate
CVS: S1-S2 normal, systolic murmur at apex
Chest: Bilateral showed wheezes
Abdomen: Soft, NT / Bowel sounds present
Extremities: No edema
MEDICAL SUPERINTENDENT: Non focal exam
# Sepsis due to left lower lobe pneumonia
COPD exacerbation and acute bronchitis
Acute hypoxic respiratory insufficiency secondary to above
Influenza and COVID-negative
Blood culture sent from ER
Continue ceftriaxone and Zithromax
On Trelegy Ellipta as outpatient
Nebulizer treatments
Decadron
Smoking cessation counseling done however patient states that every time she quits or tries to quit she ends up smoking even more
# Right upper lobe pulmonary nodule-needs outpatient follow-up
# Hypertension-continue Amlodipine, Losartan
# Loose stools-start probiotics
# GERD-continue PPI
# Mild to Moderate Aortic Stenosis
# Sleep apnea- not on CPAP
# Obesity with a BMI of 31
# Diverticulosis/Hemorrhoids
# Fatty liver
# Cervical degenerative Disc Disease
# Active Smoker-Cessation Counseling- Continue Nicotine Patch
# DVT prophylaxis-Lovenox
# Full code
D/W RN at bed side
Anticipated Discharge: 24 - 48 hours
Subjective/Interval History
-
Date of Service: November 17, 2024
Objective Data
-
Labs:
Laboratory Results
11/17/24
05:52
Sodium 139
Potassium 4.7
Chloride 112 H
Carbon Dioxide 22
BUN 18 H
Creatinine 0.6
Glucose 133 H
Calcium 9.1
Vital Signs:
Vital Signs
Temp Pulse Resp BP Pulse Ox
97.9 F 74 16 125/58 96
11/17/24 08:22 11/17/24 11:20 11/17/24 11:20 11/17/24 08:22 11/17/24 11:20
I&O
11/16/24 11/17/24 11/18/24
06:59 06:59 06:59
Intake Total 240 / 240 480 / 480
Balance 240 / 240 480 / 480
[2024-11-17] MEDS: FLORASTOR 250 MG PO ×2 (15:05→20:49)
[2024-11-17 15:38] VITALS: BP 149/67
[2024-11-17] MEDS: LOVENOX 40 MG SC (17:23)
[2024-11-17] MEDS: DECADRON 2 MG IV (20:49)
[2024-11-17] MEDS: PROTONIX 40 MG PO (20:49)
[2024-11-17 23:24] VITALS: BP 144/70
[2024-11-18] MEDS: DUONEB 3 ML INH ×4 (07:24→19:36)
[2024-11-18] MEDS: SYMBICORT 80/4.5 MCG INHALER 2 PUFF INH ×2 (07:24→19:36)
[2024-11-18] MEDS: SPIRIVA RESPIMAT 2.5 MCG 2 PUFF INH (07:24)
[2024-11-18 07:25] VITALS: BP 148/56
[2024-11-18] MEDS: ASPIR LOW (ENTERIC COATED) 81 MG PO (08:59)
[2024-11-18] MEDS: DECADRON 2 MG IV ×2 (08:59→21:14)
[2024-11-18] MEDS: FLORASTOR 250 MG PO ×2 (09:00→21:14)
[2024-11-18] MEDS: ZITHROMAX 500 MG PO (09:00)
[2024-11-18] MEDS: FLUSH (NSS) 2 FLUSH IV (09:00)
[2024-11-18] MEDS: COZAAR 100 MG PO (09:00)
[2024-11-18] MEDS: STERILE WATER FOR INJECTION 10 ML IV (13:14)
[2024-11-18] MEDS: ANESTHETIC LOZENGE 1 LOZENGE PO ×2 (13:14→21:15)
[2024-11-18] MEDS: ROCEPHIN 1000 MG IV (13:15)
[2024-11-18 14:07] LABS: COVID-19 Antigen Negative (Negative)
--- NOTE | 2024-11-18 14:16 | W.PN.HOSP.TC ---
Today's Communication/Plan
-
exposure to covid- tested and neg
Wean O2 as tolerated.
Assessment / Plan
Assessment / Plan
79-year-old with shortness of breath and cough
Chest x-ray reviewed by me-bibasilar opacities left greater than right
Echo 02/26/2024-hyperdynamic LV EF 75% mild to moderate
CVS: S1-S2 normal, systolic murmur at apex
Chest: CTA
Abdomen: Soft, NT / Bowel sounds present
Extremities: No edema
# Sepsis due to left lower lobe pneumonia
COPD exacerbation and acute bronchitis
Acute hypoxic respiratory insufficiency secondary to above
Influenza and COVID-negative
Blood culture sent from ER
Continue ceftriaxone and Zithromax
On Trelegy Ellipta as outpatient
Nebulizer treatments
Decadron
Smoking cessation counseling done however patient states that every time she quits or tries to quit she ends up smoking even more
# Right upper lobe pulmonary nodule-needs outpatient follow-up
# Hypertension-continue Amlodipine, Losartan
# Loose stools-start probiotics
# GERD-continue PPI
# Mild to Moderate Aortic Stenosis
# Sleep apnea- not on CPAP
# Obesity with a BMI of 31
# Diverticulosis/Hemorrhoids
# Fatty liver
# Cervical degenerative Disc Disease
# Active Smoker-Cessation Counseling- Continue Nicotine Patch
# DVT prophylaxis-Lovenox
# Full code
D/W RN at bed side
Anticipated Discharge: Within 24 hours
Subjective/Interval History
-
Date of Service: November 18, 2024
Objective Data
-
Vital Signs:
Vital Signs
Temp Pulse Resp BP Pulse Ox
98.7 F 73 16 148/56 94
11/18/24 07:25 11/18/24 11:15 11/18/24 11:15 11/18/24 09:00 11/18/24 11:15
I&O
11/17/24 11/18/24 11/19/24
06:59 06:59 06:59
Intake Total 480 / 480 720 / 720
Balance 480 / 480 720 / 720
[2024-11-18 15:07] VITALS: BP 146/67
[2024-11-18] MEDS: LOVENOX 40 MG SC (18:48)
[2024-11-18] MEDS: PROTONIX 40 MG PO (21:13)
[2024-11-18 23:27] VITALS: BP 169/70
[2024-11-19 00:08] VITALS: BP 149/67
[2024-11-19] MEDS: DUONEB 3 ML INH ×3 (04:10→11:05)
[2024-11-19 07:19] LABS: Blood Urea Nitrogen 20 mg/dl (7-17); Calcium 9.1 mg/dl (8.4-10.2); Carbon Dioxide 27 mmol/L (22-30); Chloride 107 mmol/L (98-107); Estimated Creatinine Clearance 52 ml/min; Glucose 109 mg/dl (70-99); Potassium 4.3 mmol/L (3.5-5.1); Sodium 138 mmol/L (135-145); eGFR > 60.00
[2024-11-19] MEDS: SYMBICORT 80/4.5 MCG INHALER 2 PUFF INH ×2 (07:35→20:21)
[2024-11-19] MEDS: SPIRIVA RESPIMAT 2.5 MCG 2 PUFF INH (07:35)
[2024-11-19 08:11] VITALS: BP 143/64
--- NOTE | 2024-11-19 08:54 | CM ---
Patient progressing well in therapy. PT recommending Home Health PT/OT. Will talk to patient to determine what agency she would like.
Plan: Case management will continue to follow and assist with discharge planning. Most likely VN with OT/PT.
[2024-11-19] MEDS: ASPIR LOW (ENTERIC COATED) 81 MG PO (09:03)
[2024-11-19] MEDS: ZITHROMAX 500 MG PO (09:03)
[2024-11-19] MEDS: DECADRON 2 MG IV ×2 (09:04→20:59)
[2024-11-19] MEDS: COZAAR 100 MG PO (09:04)
[2024-11-19] MEDS: FLORASTOR 250 MG PO ×2 (09:04→20:59)
[2024-11-19] MEDS: ROCEPHIN 1000 MG IV (13:43)
[2024-11-19] MEDS: STERILE WATER FOR INJECTION 10 ML IV (13:43)
--- NOTE | 2024-11-19 15:18 | W.PN.HOSP.TC ---
Addendum entered and electronically signed by Cassie Rodríguez MD 11/19/24 17:00:
Spoke to daughter and updated
Original Note:
Today's Communication/Plan
-
Home oxygen evaluation again tomorrow. With history of smoking prefer not to discharge patient on oxygen
Assessment / Plan
Assessment / Plan
79-year-old with shortness of breath and cough
Chest x-ray reviewed by me-bibasilar opacities left greater than right
Echo 02/26/2024-hyperdynamic LV EF 75% mild to moderate
CVS: S1-S2 normal, systolic murmur at apex
Chest: CTA
Abdomen: Soft, NT / Bowel sounds present
Extremities: No edema
# Sepsis due to left lower lobe pneumonia
COPD exacerbation and acute bronchitis
Acute hypoxic respiratory insufficiency secondary to above
Influenza and COVID-negative
Blood culture sent from ER
Continue ceftriaxone and Zithromax
On Trelegy Ellipta as outpatient
Nebulizer treatments
Decadron 2 mg IV Q 12
Smoking cessation counseling done however patient states that every time she quits or tries to quit she ends up smoking even more
On 1 L O2
Home oxygen evaluation again tomorrow. With history of smoking prefer not to discharge patient on oxygen
# Right upper lobe pulmonary nodule-needs outpatient follow-up
# Hypertension-continue Amlodipine, Losartan
# Loose stools-start probiotics
# GERD-continue PPI
# Mild to Moderate Aortic Stenosis
# Sleep apnea- not on CPAP
# Obesity with a BMI of 31
# Diverticulosis/Hemorrhoids
# Fatty liver
# Cervical degenerative Disc Disease
# Active Smoker-Cessation Counseling- Continue Nicotine Patch
# DVT prophylaxis-Lovenox
# Full code
D/W Resp at bed side
Left message for daughter
Anticipated Discharge: Within 24 hours
Subjective/Interval History
-
Date of Service: November 19, 2024
Objective Data
-
Labs:
Laboratory Results
11/19/24
06:25
Sodium 138
Potassium 4.3
Chloride 107
Carbon Dioxide 27
BUN 20 H
Creatinine 0.8
Glucose 109 H
Calcium 9.1
Vital Signs:
Vital Signs
Temp Pulse Resp BP Pulse Ox
98.2 F 76 16 144/68 95
11/19/24 08:11 11/19/24 11:07 11/19/24 11:07 11/19/24 09:04 11/19/24 11:07
I&O
11/18/24 11/19/24 11/20/24
06:59 06:59 06:59
Intake Total 720 / 720 600 / 600
Balance 720 / 720 600 / 600
[2024-11-19 15:58] VITALS: BP 163/73
[2024-11-19] MEDS: LOVENOX 40 MG SC (17:57)
[2024-11-19] MEDS: FLUSH (NSS) 1 FLUSH IV (20:59)
[2024-11-19] MEDS: PROTONIX 40 MG PO (21:02)
[2024-11-19 23:43] VITALS: BP 145/54
[2024-11-20 06:07] LABS: Blood Urea Nitrogen 17 mg/dl (7-17); Calcium 9.1 mg/dl (8.4-10.2); Carbon Dioxide 27 mmol/L (22-30); Chloride 107 mmol/L (98-107); Estimated Creatinine Clearance 60 ml/min; Glucose 111 mg/dl (70-99); Potassium 4.3 mmol/L (3.5-5.1); Sodium 140 mmol/L (135-145); eGFR > 60.00
[2024-11-20 07:40] VITALS: BP 157/67
[2024-11-20] MEDS: SPIRIVA RESPIMAT 2.5 MCG 2 PUFF INH (08:10)
[2024-11-20] MEDS: SYMBICORT 80/4.5 MCG INHALER 2 PUFF INH (08:11)
[2024-11-20] MEDS: DECADRON 2 MG IV (08:52)
[2024-11-20] MEDS: ASPIR LOW (ENTERIC COATED) 81 MG PO (08:53)
[2024-11-20] MEDS: COZAAR 100 MG PO (08:53)
[2024-11-20] MEDS: ZITHROMAX 500 MG PO (08:53)
[2024-11-20] MEDS: FLORASTOR 250 MG PO (08:53)
--- NOTE | 2024-11-20 11:26 | W.PN.HOSP.TC ---
Today's Communication/Plan
-
OK for d/c
Assessment / Plan
Assessment / Plan
79-year-old with shortness of breath and cough
Chest x-ray reviewed by me-bibasilar opacities left greater than right
Echo 02/26/2024-hyperdynamic LV EF 75% mild to moderate
CVS: S1-S2 normal, systolic murmur at apex
Chest: CTA
Abdomen: Soft, NT / Bowel sounds present
Extremities: No edema
Patient is in need of oxygen on exertion due to pulse oximetry of 92% on room air at rest; 86% on room air with exertion. Patient was placed on 2L O2 via nasal cannula with saturation of 95%. Oxygen will help to improve hypoxemia. Patient is mobile
within the home. Albuterol therapy has been discussed and is ineffective in treating hypoxemia-related symptoms. Oxygen will improve the patient's symptoms.
# Sepsis due to left lower lobe pneumonia
COPD exacerbation and acute bronchitis
Acute hypoxic respiratory insufficiency secondary to above
Influenza and COVID-negative
Blood culture sent from ER
Continue ceftriaxone and Zithromax--change to Keflex as outpt to finish sourse
On Trelegy Ellipta as outpatient
Nebulizer treatments
Decadron 2 mg IV Q 12--change to pred taper
Smoking cessation counseling done however patient states that every time she quits or tries to quit she ends up smoking even more
On 1 L O2
Home oxygen evaluation again tomorrow.
# Right upper lobe pulmonary nodule-needs outpatient follow-up
# Hypertension-continue Amlodipine, Losartan
# Loose stools-start probiotics
# GERD-continue PPI
# Mild to Moderate Aortic Stenosis
# Sleep apnea- not on CPAP
# Obesity with a BMI of 31
# Diverticulosis/Hemorrhoids
# Fatty liver
# Cervical degenerative Disc Disease
# Active Smoker-Cessation Counseling- Continue Nicotine Patch
# DVT prophylaxis-Lovenox
# Full code
D/W Resp at bed side
Anticipated Discharge: Today
Subjective/Interval History
-
Date of Service: November 20, 2024
pt agreeable to O2--tells me she is not planning to smoke anytime soon after her hospitalization--did explain risks
Objective Data
-
Labs:
Laboratory Results
11/20/24
04:45
Sodium 140
Potassium 4.3
Chloride 107
Carbon Dioxide 27
BUN 17
Creatinine 0.7
Glucose 111 H
Calcium 9.1
Vital Signs:
max temp for 24 hours
11/19/24
23:43
Temp 98.8 F
Vital Signs
Temp Pulse Resp BP Pulse Ox
97.8 F 97 16 157/67 95
11/20/24 07:40 11/20/24 08:13 11/20/24 08:13 11/20/24 07:40 11/20/24 08:13
I&O
11/19/24 11/20/24 11/21/24
06:59 06:59 06:59
Intake Total 600 / 600 480 / 480
Balance 600 / 600 480 / 480
Review of Systems
-
All other systems: Reviewed and negative
Physical Exam
-
General: Well Developed, Well Nourished and No Apparent Distress
HEENT: Normocephalic and Atraumatic
Respiratory: Clear to Auscultation; Negative Wheezes or Rhonchi
Cardiac: Regular Rhythm and S1/S2; Negative Murmur
GI: Soft, Nontender, Nondistended and Normal Bowel Sounds
Musculoskeletal: No Clubbing, No Cyanosis and No Edema
Skin: Warm
Neuro: Awake and Alert
--- NOTE | 2024-11-20 12:32 | CM ---
CM following re: discharge planning.
Reviewed pt's chart, met with pt and pt's daughter at bedside.
Discharge order noted. Pt is aware, expressed her agreement and pt stated her daughter will transport home. IMM reviewed, placed on chart, pt has a copy.
Per MD pt needs home Oxygen. KARTHIKEYAN placed an order for home Oxygen with [facility], spoke to [employer] liaison and she confirmed that portable oxygen tank will be delivered to pt's room by 3:00 p.m. Both pt and her daughter are aware to call [facility]
when home for O2 concentrator delivery. [phone].
Pt is aware not to smoke and using supplemental Oxygen.
D/C plan: home with home oxygen and family support. Daughter to transport.
No other discharge needs identified.
[2024-11-20] MEDS: STERILE WATER FOR INJECTION 10 ML IV (13:39)
[2024-11-20] MEDS: VISBIOME 2 CAP PO (13:39)
[2024-11-20] MEDS: ROCEPHIN 1000 MG IV (13:39)
[2024-11-20 14:26] VITALS: BP 159/69
--- NOTE | 2024-11-21 07:12 | W.DCSUMMARY ---
Discharge Summary
Discharge Data
Date of Admission: 11/15/24
Date of Discharge: 11/20/24
-
Pending Results: No
Hospital Course
Primary care physician : Rip Chambers
Principal Discharge diagnosis : Sepsis with acute hypoxemic respiratory insufficiency due to chronic obstructive pulmonary disease exacerbation along with acute bronchitis
Chronic Discharge diagnosis : Right upper lobe pulmonary nodule, essential hypertension, gastroesophageal reflux disease, mild to moderate aortic stenosis, obstructive sleep apnea not on CPAP, obesity with a BMI of 31, active smoking
Hospital Course : Patient was an 79-year-old female with a history of chronic obstructive pulmonary disease among other medical issues who presented with feeling weak, coughing, shortness of breath, and fever. Patient was found to have pneumonia
and was admitted.
Problem #1: Sepsis with acute hypoxemic respiratory insufficiency due to chronic obstructive pulmonary disease exacerbation along with acute bronchitis. Patient was admitted. Influenza and COVID were both negative. Blood cultures were negative as
well. Patient was started on ceftriaxone and Zithromax and has been converted to Keflex to finish her outpatient course. She was started on IV Decadron and eventually transitioned to prednisone taper at discharge. She was requiring oxygen while
in-house. She was weaned down to room air while just sitting in bed. However, with exertion she does qualify for 2 L of oxygen since her pulse ox dropped to 86% on room air with exertion. I had a long conversation with the patient regarding her
requiring oxygen and her smoking history. She assures me that she will not be smoking in the near term and certainly will not be smoking with her oxygen in place. Because of this, home oxygen therapy has been set up for the patient. Patient's
daughter was at bedside to hear all of the conversation that I had with the patient.
Problem #2: All other medical issues. These include Right upper lobe pulmonary nodule, essential hypertension, gastroesophageal reflux disease, mild to moderate aortic stenosis, obstructive sleep apnea not on CPAP, obesity with a BMI of 31, active
smoking. These medical issues were stable during her hospitalization. Medications were continued as able. In regards to her smoking, multiple conversations were had with the patient by multiple providers stating that she would need to quit.
Patient is not interested in quitting at this time. However, she did say that she is not ready to start smoking at this time because she does not wish to damage her lungs. She also stated 'I know how my lungs and my body react.'.
Patient is stable for discharge home at this time with oxygen therapy. If there are any questions regarding this dictation or her hospital stay, please intensity to call. Our office number is [phone].
Time for discharge 40 minutes.
Important imaging findings :
CHEST X-RAY IMPRESSION:
1. Hazy bibasilar opacities, left greater than right, suggestive of subsegmental atelectasis or pneumonia.
2. No pleural effusion on either side.
Discharge Plan
-
Patient Disposition: Home with Home Care
Discharge Diagnosis/Procedures: Left lower lobe pneumonia
COPD exacerbation and acute bronchitis
Right upper lobe pulmonary nodule
Essential Hypertension
Condition: Good
Diet: 2 Gram Sodium
Activity: As tolerated
Driving Restrictions: As prior to admission
Others Tests: X ray of chest 6 weeks to ensure clearing
Other Services: VN
Activity Restrictions/Additional Instructions:
Please Quit smoking.
Follow up with Pulmonary or PCP for right lung nodule
See your PCP to make sure that you have pneumonia vaccine
You require oxygen with exertion. You CANNOT smoke while on oxygen.
Referrals:
Randy Bird MD [Active] - in one to two months (anyone in group fine)
Rip Chambers DO [Family Provider] - in less than 1 week
Prescriptions:
New
guaifenesin 100 mg/5 mL Liquid
100 mg PO Q4HPRN PRN (Reason: cough) Qty: 118 0RF
cephalexin 500 mg capsule
500 mg PO TID 10 Days Qty: 30 0RF
prednisone 10 mg Tablet
See Rx Instructions .ROUTE .COMPLEX Qty: 30 0RF
Rx Instructions:
Take By Mouth:
40 mg daily x3 days, 30 mg daily x3 days,
20 mg daily x3 days, 10 mg daily x3 days.
Continued
albuterol sulfate [Ventolin HFA] 90 MCG/PUFF HFA aerosol inhaler
2 puff inhalation R Q4HPRN PRN (Reason: sob/wheezing)
omeprazole magnesium [Prilosec OTC] 20 MG tablet,delayed release (DR/EC)
20 mg PO HS
aspirin 81 mg Tablet,Delayed Release (Dr/Ec)
81 mg PO DAILY
amlodipine 10 mg tablet
10 mg PO DAILY
losartan 100 mg tablet
100 mg PO DAILY
Trelegy Ellipta 100-62.5-25 mcg blister with device
1 inh INHALATION R HS
Discontinued
ibuprofen 400 mg Tablet
400 mg PO Q6HPRN PRN (Reason: BACK PAINS)
Discharge Orders:
Discharge Patient (As Directed); Ordered 11/20/24
Ordered By: Jannette Ruvalcaba
Discharge Date and Time
Discharge Date/Time: 11/20/24 16:08
Print Language: INDONESIAN
== END 2024-11-20 16:08 | disposition home health service (06) | DRG 871 ==
LOC: 4 EAST ACU 15:02
PROVIDERS: Hospitalist; ADMITTING PHYSICIAN Internal Medicine; ATTENDING PHYSICIAN Internal Medicine; EMERGENCY PHYSICIAN Emergency Medicine; FAMILY PHYSICIAN Family Medicine
DX: A41.89 Other specified sepsis (principal); J18.9 Pneumonia, unspecified organism; J44.1 Chronic obstructive pulmonary disease with (acute) exacerbation; J44.0 Chronic obstructive pulmonary disease with (acute) lower respiratory infection; F17.210 Nicotine dependence, cigarettes, uncomplicated; Z11.52 Encounter for screening for COVID-19; J20.9 Acute bronchitis, unspecified; R91.1 Solitary pulmonary nodule; I10 Essential (primary) hypertension; K21.9 Gastro-esophageal reflux disease without esophagitis; E66.9 Obesity, unspecified; Z68.31 Body mass index [BMI] 31.0-31.9, adult; Z60.2 Problems related to living alone; G47.33 Obstructive sleep apnea (adult) (pediatric); Z79.899 Other long term (current) drug therapy
CPT/HCPCS: 71046; 80048; 80053; 83605; 83735; 84145; 85025; 85027; 87040; 87070; 87205; 87502; 87811; 94640; 97116; 97163; 97167; 99285; 99406

== ENCOUNTER → 2025-01-04 14:55 | Outpatient (REF) | payer MEDICARE, SELFPAY | LOC: HWRAD 14:55 | PROVIDERS: ATTENDING PHYSICIAN Family Medicine | DX: J18.9 Pneumonia, unspecified organism (principal) | CPT/HCPCS: 71046 ==

== ENCOUNTER → 2025-02-18 16:33 | Outpatient (REF) | payer MEDICARE, SELFPAY | LOC: RAD 16:33 | PROVIDERS: ATTENDING PHYSICIAN Internal Medicine; FAMILY PHYSICIAN Family Medicine | DX: R91.8 Other nonspecific abnormal finding of lung field (principal) | CPT/HCPCS: 71250 ==

== ENCOUNTER → 2025-02-28 12:00 | Outpatient (REF) | payer MEDICARE, SELFPAY | LOC: DHSLP 12:00 | PROVIDERS: ATTENDING PHYSICIAN Internal Medicine; FAMILY PHYSICIAN Family Medicine | DX: G47.33 Obstructive sleep apnea (adult) (pediatric) (principal); R09.02 Hypoxemia | CPT/HCPCS: 95800 ==

== ENCOUNTER 2025-05-10 17:02 | Emergency (ER) | payer MEDICARE, SELFPAY ==
[2025-05-10 17:04] VITALS: BP 157/77
[2025-05-10 17:36] LABS: Hematocrit 44.3 % (37.0-47.0); Hemoglobin 15.2 g/dL (12.0-16.0); Mean Corp Hgb Conc. 34.3 g/dL (33.0-37.0); Mean Corpuscular Volume 87.4 fL (81.0-99.0); Nucleated Red Blood Cells % 0 %; Platelet Count 394 10^3/uL (130-400); Red Cell Dist. Width 13.1 % (11.5-14.5)
[2025-05-10 17:50] LABS: ALT (SGPT) 33 U/L (0-35); AST (SGOT) 23 U/L (14-36); Albumin 4.3 g/dl (3.5-5.0); Alkaline Phosphatase 116 U/L (38-126); Blood Urea Nitrogen 16 mg/dl (7-17); Calcium 9.5 mg/dl (8.4-10.2); Carbon Dioxide 25 mmol/L (22-30); Chloride 106 mmol/L (98-107); Glucose 103 mg/dl (70-99); Potassium 3.7 mmol/L (3.5-5.1); Sodium 137 mmol/L (135-145); Total Protein 7.5 g/dl (6.3-8.2); eGFR > 60.00
[2025-05-10 17:56] LABS: COVID-19 Antigen Negative (Negative)
[2025-05-10 18:17] VITALS: BMI 31.2
[2025-05-10 18:21] VITALS: BP 163/54
[2025-05-10] MEDS: VIBRAMYCIN 100 MG PO (19:56)
[2025-05-10] MEDS: OMNICEF 300 MG PO (19:56)
--- NOTE | 2025-05-10 20:09 | ED.GENMED ---
History of Present Illness
General
Chief Complaint: Breathing Problem
Source: patient and family
Exam Limitations: none
Time Seen by Provider: 05/10/25 18:06
Nursing documentation reviewed up to this point in time: agreed with
History of Present Illness
History of Present Illness:
79-year-old female past medical history of hypertension hyperlipidemia presenting to the emergency department today with concerns of cough shortness of breath over the past few weeks. Recently treated for potential sinus infection with azithromycin
1 week ago. Denies any chest pain. Has had similar symptoms in the past when she had a pneumonia. Has been using her inhalers. Denies any noticeable COPD symptoms or wheezing.
Past History
Past History
ED Past Medical History: COPD, GERD, HTN, Hypercholesterolemia and Other (recurrent episodes of 'TIAs')
ED Past Surgical History: None
Social History
Tobacco: Smoker
Alcohol: None
Drug: None
Personal: Single
Living: alone
Employment: Retired
Family History
Family History: Other (reviewed and noncontributory)
Review of Systems
Review of Systems
Allergies reviewed?: Yes
All Other Systems: ROS reviewed and negative except as documented in HPI and ROS
Phy Exam
Physical Exam
Physical Exam:
GENERAL: Alert , in no apparent distress
EYE: pupils equal and reactive
NECK: Supple, no significant adenopathy.
ENT: o/p clr, mmm.
CARDIAC: Regular rate and rhythm .
LUNGS: Clear breath sounds bilaterally, no acute respiratory distress, no wheezes/rales/rhonchi
ABDOMEN: Soft, without focal tenderness, no r/g, no cvat
NEUROLOGICAL: Alert and oriented, no focal neuro deficits
SKIN: Warm and dry, skin intact.
MUSCULOSKELETAL: No edema, well perfused.
PSYCH: Normal and appropriate interaction.
Scores
Heart Failure Risk
Heart Failure Risk Score: Not Applicable
Course
Orders/Labs/Results
Orders:
Orders
05/10/25 17:20
COVID-19 Antigen Urgent
Source: Nasal Swab
Complete Blood Count/With Diff Urgent
Comprehensive Metabolic Panel Urgent
Influenza A+B Rapid Molecular Urgent
FELIPE Source: Nasal Swab
Specimen Description:
05/10/25 18:06
Chest [CR Chest - 2 Views ] Urgent
Comment:
Reason For Exam: cough sob
05/10/25 19:36
Cefdinir [Omnicef] 300 mg PO NOW STA
Doxycycline [Vibramycin] 100 mg PO NOW STA
Abnormal Lab Results
05/10/25
17:20
WBC 15.0 H 10^3/uL
(4.8-10.8)
Abs Immat Gran (auto) 0.1 H 10^3/uL
(0-0.05)
Absolute Neuts (auto) 10.1 H 10^3/uL
(1.4-6.5)
Absolute Monos (auto) 1.2 H 10^3/uL
(0.1-0.6)
Immature Gran % 0.8 H %
(0-0.5)
Glucose 103 H mg/dl
(70-99)
05/10/25 17:20
05/10/25 17:20
Vital Signs
Initial and Last Documented VS:
Initial Vital Signs
Temp Pulse Resp BP Pulse Ox
97.9 F 111 20 157/77 94
05/10/25 17:04 05/10/25 17:04 05/10/25 17:04 05/10/25 17:04 05/10/25 17:04
Last Documented Vital Signs
Temp Pulse Resp BP Pulse Ox
97.9 F 81 19 163/54 94
05/10/25 17:04 05/10/25 18:30 05/10/25 18:30 05/10/25 18:21 05/10/25 18:30
MDM/Problems Addressed
MDM/Problems Addressed:
7-year-old female presenting to the emergency department today with concerns of cough shortness of breath worsening over the past week or so. On arrival tachycardic but improving without specific treatment. White count of 15 but was recently on
steroids. Otherwise chest x-ray showing potential consolidation consistent with pneumonia. She was started on antibiotics and otherwise will follow-up closely with her primary care doctor. Return precautions given.
*Pulse Oximetry
SaO2: 94
Oxygen Mode of Delivery: Room air
Patient hypoxic: no (93)
*Critical Care Note
Total Time (30-74mins, 75-104mins- exclusive of procedures): Not Applicable
ED Attending Note
-
Portions of this chart may have been created with voice recognition software.� Occasional wrong word or��sound alike� substitutions may have occurred due to the inherent limitations of voice recognition software.
Discharge Plan
Departure
Patient Disposition: Home (Routine Discharge)
Date of Disposition: 05/10/25
Time of Disposition: 20:10
Patient with high blood pressure during this ER visit?: No
Condition: Good
Covid-19: Not Applicable
Discharge Problem:
Pneumonia
Instructions: Pneumonia in adults
Prescriptions:
New
cefpodoxime 200 mg tablet
200 mg PO BID 7 Days Qty: 14 0RF
doxycycline hyclate 100 mg tablet
100 mg PO BID 7 Days Qty: 14 0RF
No Action
albuterol sulfate [Ventolin HFA] 90 MCG/PUFF HFA aerosol inhaler
2 puff inhalation R Q4HPRN PRN (Reason: sob/wheezing)
omeprazole magnesium [Prilosec OTC] 20 MG tablet,delayed release (DR/EC)
20 mg PO HS
aspirin 81 mg Tablet,Delayed Release (Dr/Ec)
81 mg PO DAILY
amlodipine 10 mg tablet
10 mg PO DAILY
losartan 100 mg tablet
100 mg PO DAILY
Trelegy Ellipta 100-62.5-25 mcg blister with device
1 inh INHALATION R HS
guaifenesin 100 mg/5 mL Liquid
100 mg PO Q4HPRN PRN (Reason: cough) Qty: 118 0RF
cephalexin 500 mg capsule
500 mg PO TID 10 Days Qty: 30 0RF
prednisone 10 mg Tablet
See Rx Instructions .ROUTE .COMPLEX Qty: 30 0RF
Rx Instructions:
Take By Mouth:
40 mg daily x3 days, 30 mg daily x3 days,
20 mg daily x3 days, 10 mg daily x3 days.
Referrals:
Rip Chambers, [Family Provider, [facility]]
Activity Restrictions/Additional Instructions:
You came to the emergency department today with concerns of respiratory symptoms. Your x-ray appears to have findings consistent with pneumonia. Please take the prescribed antibiotic and follow-up closely with your primary care doctor within a
week for reassessment. Return for any worsening, new or concerning symptoms.
Interventions
Interventions:
*Risk Screen - Suicide Last Done: 05/10/25 17:04
*General Assessment Last Done: 05/10/25 17:04
*Neglect/Abuse Screening Last Done: 05/10/25 18:17
*ED- Fall Risk Assessment Last Done: 05/10/25 18:17
*ED COVID-19 Vaccine History Last Done: 05/10/25 18:17
*ED Influenza Vaccine History Last Done: 05/10/25 18:17
ED- Cardiac Assessment Last Done: 05/10/25 18:17
ED- Pulmonary Assessment Last Done: 05/10/25 18:17
Discharge Date and Time
Print Language: [email or web address]
== END 2025-05-10 20:31 | disposition home or self-care (01) ==
LOC: EMR 17:02
PROVIDERS: Emergency Medicine; EMERGENCY PHYSICIAN Emergency Medicine; FAMILY PHYSICIAN Family Medicine
DX: J18.9 Pneumonia, unspecified organism (principal); J44.0 Chronic obstructive pulmonary disease with (acute) lower respiratory infection; I10 Essential (primary) hypertension; E78.00 Pure hypercholesterolemia, unspecified; K21.9 Gastro-esophageal reflux disease without esophagitis; F17.200 Nicotine dependence, unspecified, uncomplicated; Z87.01 Personal history of pneumonia (recurrent); Z79.82 Long term (current) use of aspirin; Z86.73 Personal history of transient ischemic attack (TIA), and cerebral infarction without residual deficits
CPT/HCPCS: 99284; 71046; 80053; 85025; 87502; 87811

== ENCOUNTER → 2025-05-20 15:19 | Outpatient (REF) | payer MEDICARE, SELFPAY | LOC: HWWDC 15:19 | PROVIDERS: ATTENDING PHYSICIAN Family Medicine | DX: Z12.31 Encounter for screening mammogram for malignant neoplasm of breast (principal) | CPT/HCPCS: 77063; 77067 ==